=== PATIENT | male | born 1985 | race Caucasian/White ===

== ENCOUNTER 2017-08-23 17:00 | Emergency (ER) | payer SELFPAY ==
[~2017-08-23] VITALS: Ht 177.8 cm; Wt 95.3 kg
[~2017-08-23 17:00] MED LIST: ALBUTEROL2 PUFFS/17 IN; AMOXIL500 MG PO; CLARITIN10 MG PO; HYDROCODONE1 TABLET PO; IBU800 MG PO; LORTAB 5/500 501 TAB PO; MEDROL 4MG. DOSE4 MG PO; NAPROSYN 500MG500 MG PO; NOMEDS; PHENERGAN 25MG.25 M1 PO; SILVADENE CR 4400 GM TP; VIBRAMYCIN HYC100 MG PO
--- OUTSIDE RECORDS SUMMARY | 2017-08-23 17:08 | External Medical Summary Rpt | CCD ---
Author Author , TANVIR Organization T[facility] Address Unknown Phone [email or web address] Purpose Continuity of Care Document - 01-05-2015 through 2016 Results Labs Lab Lab Date Result Refere Interp Status Commen Order Detail nces retati t Range on CHLAMYDIA AND GONORRHEA TESTING (01-05-2015 16:00) Chlamyd POSITIV complet ia 015 E ed trachom 16:00 atis rRNA [Presen ce] in Unspeci fied specime n by Probe & target amplifi cation method Neisser NEGATIV complet ia 015 E ed gonorrh 16:00 oeae rRNA [Presen ce] in Unspeci fied specime n by Probe & target amplifi cation method CHLAMYDIA AND GONORRHEA TESTING (01-05-2015 16:00) COLLECT L. complet OR 015 RENE, ed 16:00 RN ETHNICI WHITE, complet TY 015 NON-HIS ed 16:00 PANIC KIT 2015-01 complet EXPIRAT 015 -30 ed ION 16:00 DATE SYMPTOM YES complet S 015 ed 16:00 REASON VOLUNTE complet FOR 015 ER/MEDI ed REQUEST 16:00 VENTURA PROBLEM SPECIME URINE complet N 015 ed SOURCE 16:00 PREGNAN NO complet T 015 ed 16:00 CHART [id number] complet NUMBER 015 3 ed 16:00 Chlamyd Pending complet ia 015 ed trachom 16:00 atis rRNA [Presen ce] in Unspeci fied specime n by Probe & target amplifi cation method Neisser Pending complet ia 015 ed gonorrh 16:00 oeae rRNA [Presen ce] in Unspeci fied specime n by Probe & target amplifi cation method
--- OUTSIDE RECORDS SUMMARY | 2017-08-23 17:08 | External Medical Summary Rpt ---
Author Author [employer], [employer] [employer] Organization [employer] Address Unknown Phone Unavailable Results CHLAMYDIA AND GONORRHEA TESTING Observa Value Referen Units Interpr Notes Date tion ce etation Range COLLECT L. No No No No Apr 2 OR RENE, informa informa informa informa 2015 RN tion in tion in tion in tion in 4:00 PM source source source source data data data data ETHNICI WHITE, No No No No Apr 2 TY NON-HIS informa informa informa informa 2015 PANIC tion in tion in tion in tion in 4:00 PM source source source source data data data data KIT 2015-01 No No No No Apr 2 EXPIRAT -30 informa informa informa informa 2015 ION tion in tion in tion in tion in 4:00 PM DATE source source source source data data data data SYMPTOM YES No No No No Apr 2 S informa informa informa informa 2015 tion in tion in tion in tion in 4:00 PM source source source source data data data data REASON VOLUNTE No No No No Apr 2 FOR ER/MEDI informa informa informa informa 2015 REQUEST VENTURA tion in tion in tion in tion in 4:00 PM PROBLEM source source source source data data data data SPECIME URINE No No No No Apr 2 N informa informa informa informa 2015 SOURCE tion in tion in tion in tion in 4:00 PM source source source source data data data data PREGNAN NO No No No No Apr 2 T informa informa informa informa 2015 tion in tion in tion in tion in 4:00 PM source source source source data data data data CHART [id number] No No No No Apr 2 NUMBER 3 informa informa informa informa 2015 tion in tion in tion in tion in 4:00 PM source source source source data data data data Chlamyd POSITIV No No No NEGATIV Apr 2 ia E informa informa informa E 2015 trachom tion in tion in tion in RESULT= 4:00 PM atis source source source WITHIN rRNA data data data NORMAL [Presen ce] in LIMITSP Unspeci OSITIVE fied specime RESULT= n by Probe & ABNORMA target LEQUIVO VENTURA amplifi RESULT= cation method INDETER MINATEU NSATISF ACTORY RESULT= INVALID Neisser NEGATIV No No No NEGATIV Apr 2 ia E informa informa informa E 2015 gonorrh tion in tion in tion in RESULT= 4:00 PM oeae source source source WITHIN rRNA data data data NORMAL [Presen ce] in LIMITSP Unspeci OSITIVE fied specime RESULT= n by Probe & ABNORMA target LEQUIVO VENTURA amplifi RESULT= cation method INDETER MINATEU NSATISF ACTORY RESULT= INVALID THE APTIMA COMBO 2 ASSAY IS NOT INTENDE D FOR THE EVALUAT ION OF SUSPECT EDSEXUA L ABUSE OR FOR OTHER MEDICO- LEGAL INDICAT IONS. FOR THOSE PATIENT S FORWHOM A FALSE POSITIV E RESULT MAY HAVE ADVERSE PSYCHO- SOCIAL IMPACT, [facility] NG.\.br \This report contain s patient informa tion that must be protect ed in accorda nce with the Health Insuran ce Portabi lity and Account ability Act. CHLAMYDIA AND GONORRHEA TESTING Observa Value Referen Units Interpr Notes Date tion ce etation Range COLLECT L. No No No No Jan 2 OR ANJU, informa informa informa informa 2014 RN tion in tion in tion in tion in 4:00 PM source source source source data data data data ETHNICI WHITE, No No No No Jan 2 TY NON-HIS informa informa informa informa 2015 PANIC tion in tion in tion in tion in 4:00 PM source source source source data data data data KIT 2015-01 No No No No Jan 05 EXPIRAT -30 informa informa informa informa 2015 ION tion in tion in tion in tion in 4:00 PM DATE source source source source data data data data SYMPTOM YES No No No No Jan 05 S informa informa informa informa 2015 tion in tion in tion in tion in 4:00 PM source source source source data data data data REASON VOLUNTE No No No No Jan 05 FOR ER/MEDI informa informa informa informa 2015 REQUEST VENTURA tion in tion in tion in tion in 4:00 PM PROBLEM source source source source data data data data SPECIME URINE No No No No Apr 2 N informa informa informa informa 2015 SOURCE tion in tion in tion in tion in 4:00 PM source source source source data data data data PREGNAN NO No No No No Apr 2 T informa informa informa informa 2015 tion in tion in tion in tion in 4:00 PM source source source source data data data data CHART [id number] No No No No Apr 2 NUMBER 3 informa informa informa informa 2015 tion in tion in tion in tion in 4:00 PM source source source source data data data data Chlamyd Pending No No No No Apr 2 ia informa informa informa informa 2015 trachom tion in tion in tion in tion in 4:00 PM atis source source source source rRNA data data data data [Presen ce] in Unspeci fied specime n by Probe & target amplifi cation method Neisser Pending No No No \.br\ Apr 2 ia informa informa informa is 2015 gonorrh tion in tion in tion in report 4:00 PM oeae source source source contain rRNA data data data s [Presen patient ce] in Unspeci informa fied tion specime that n by must be Probe & target protect ed in amplifi accorda cation nce method with the Health Insuran ce Portabi lity and Account ability Act.
--- OUTSIDE RECORDS SUMMARY | 2017-08-23 17:08 | External Medical Summary Rpt | CCD ---
Demographics Preferred Language Filipino Marital Status Unknown Worship Affiliation Unknown Race Unknown Ethnic Group Unknown Author Author , TANVIR RAMEY Address Unknown Phone [email or web address] Immunization Name Date Rout CVX Reac Dose Comm Prov Is Faci e tion ent ider Refu lity Give sed n Hep 06-06 42 999 Hist H149 No H149 B, 5- oric adol 98 al Info High rmat Ris ion - Sour ce Unsp ecif ied MMR 07- 3 999 Hist H149 No H149 8- oric 98 al Info rmat ion - Sour ce Unsp ecif ied Hep - 42 999 Hist H149 No H149 B, 8- oric adol 98 al Info High rmat Ris ion - Sour ce Unsp ecif ied
--- OUTSIDE RECORDS SUMMARY | 2017-08-23 17:08 | External Medical Summary Rpt | CCD ---
Author Author [employer] Organization [employer] Address Unknown Phone Unavailable Purpose Continuity of Care Document - through 2016
--- OUTSIDE RECORDS SUMMARY | 2017-08-23 17:08 | External Medical Summary Rpt | CCD ---
Demographics Preferred Language Iranian Marital Status Unknown Mu-Ism Affiliation Unknown Race Unknown Ethnic Group Unknown Author Author , TANVIR RAMEY Address Unknown Phone [email or web address] Immunization Name Date Rout CVX Reac Dose [...]
--- OUTSIDE RECORDS SUMMARY | 2017-08-23 17:08 | External Medical Summary Rpt | CCD ---
Author Author , TANVIR Organization T[facility] Address Unknown Phone [email or web address] Purpose Continuity of Care Document - 01-05-2015 [...] NO complet T 015 ed 16:00 CHART [id number] complet NUMBER 015 3 ed 16:00 Chlamyd Pending complet ia 015 ed trachom 16:00 atis rRNA [Presen ce] in Unspeci fied specime n by Probe & target amplifi cation method Neisser Pending complet ia 015 ed gonorrh 16:00 oeae rRNA [Presen ce] in Unspeci fied specime n by Probe & target amplifi cation method
--- OUTSIDE RECORDS SUMMARY | 2017-08-23 17:08 | External Medical Summary Rpt ---
Author Author [employer] [employer], [employer] [employer] Organization [employer] Address Unknown Phone Unavailable [...] source source data data data data CHART [id number] No No No No Apr 2 NUMBER [...] MAY HAVE ADVERSE PSYCHO- SOCIAL IMPACT, [facility]I NG.\.br \This report contain s [...] source source data data data data CHART [id number] No No No No Apr 2 NUMBER [...]
[2017-08-23] MEDS ORDERED: CLINDAMYCIN HC300 MG PO (18:12)
--- NOTE | 2017-08-23 18:15 | Urgent Treatment Center Report ---
See Addendum History of Present Issue Date/Time Seen by Provider 08/23/17 175 Visit Reason Pt arrived:Walked Presenting Problem:PT HAS ABCESS ON LEFT HAND X'S 3 DAYS Location if Accident: Onset of symptoms date/time:08/20/17 or onset unknown for: Have you (or family members/close friends) recently traveled outside the [place]? N If Yes, where/when: Have you had exposure to infectious disease within the past month? TB? Other? Specify: Patient state that he has had an abcess on his left hand for around 3 days that has continued to get worse State that today it "popped" and started draining and a large amount of puss came out of it so he was worried that it may get infected and was starting to hurt so he came in to get antibiotic and see if we could aspirate some of the puss from the area ALLERGIES Coded Allergies: Sulfa (Sulfonamide Antibiotics) (Intermediate, I-RASH 05/13/16) codeine (Mild, STOMACH PAIN 05/13/16) Home Medications Reported Medications No Home Medications (NO HOME MEDICATIONS) History Medical History General CAD? No Angina: No LA: No Hypertension? Yes Hyperlipidemia? No CHF? No DVT? No PE? No COPD? No Asthma? No Anemia? No GERD? No Gastric ulcers? No GI Bleed? No Hernia? No Thyroid Problems? No Hypothyroidism? No CVA? No Seizures? No Diabetes? No Renal Insuffiency? No UTI? No Stones? No BPH? No GB Disease: No Nephritic Syndrome? No Asplenia? No Hepatitis? No Sickle Cell Disease? No Arthritis? No Migraines? No Cataracts? No Glaucoma? No MRSA? No HIV? No TB? No Anxiety? No Depression? No Cancer? No More? No Immunization HX DT/Tetanus 1-4 YRS Surgical Hx Previous Surgery?Y BROKEN NOSE REPAIR EARTUBES LEFT ARM Social History Smoking Hx Smoker: Current Every Day Smoker Tobacco: Yes Type Cigarettes Packs/day 1 1/2 - 2 Packs Alcohol Alcohol: No Review of Systems All Other Systems Reviewed and Negative Skin other (abcess left hand) Physical Exam Vital Signs Vital Signs Date Time Temp Pulse Resp B/P Pulse O2 O2 Flow FiO2 Ox Delivery Rate 08/23 1809 22 08/23 1737 98.3 107 20 152/71 97 General Appearance normal appearance, WD/WN, no apparent distress Respiratory Status Yes: trachea midline, chest symmetrical, non tender chest. No: respiratory distress. Lung Sounds bilateral: normal breath sounds, lungs clear. Cardiovascular normal exam, regular rate/rhythm, no peripheral edema Neurologic alert, normal exam, oriented x 3 Medical Decision Making LABS/Meds/Orders Pt receiving controlled substance in ED? No Results/Orders Laboratory Tests 08/23/17 1720: Lactic Acid 1.3 08/23/17 172: Sodium 138, Potassium 4.0, Chloride 102, Carbon Dioxide 31, BUN 11, Creatinine 1.0, Estimated Creat Clear 146, Estimated GFR (MDRD) 88, Glucose 68 L, Calcium 9.6, Total Bilirubin 0.5, AST 33, ALT 67, Alkaline Phosphatase 83, Total Protein 8.8 H, Albumin 4.0, Globulin 4.8 H, Albumin/Globulin Ratio 0.8 L, WBC 10.9 H , RBC 5.48, Hgb 14.9, Hct 43.6, MCV 79.6 L, RDW 14.4, Plt Count 348, MPV 6.8 L , Gran % 72.9, Gran # 7.9, Lymphocytes % 18.1, Monocytes % 6.3, Eosinophils % 2.3, Basophils % 0.4, Lymphocytes # 2.0, Monocytes # 0.7, Eosinophils # 0.3, Basophils # 0.0, PUBS MCHC 34.2, MCH 27.2 Current Medication Orders Sig/Mckayla Start time Last Medication Dose Route Stop Time Status Admin Clindamycin HCl 0 .STK-MED ONE 08/23 1819 DC PO Clindamycin HCl 300 MG ONCE ONE 08/23 1815 DC 08/23 PO 08/23 1816 1825 Ketorolac 30 MG ONCE ONE 08/23 181 DC 08/23 Tromethamine IV 08/23 1816 180 Sodium Chloride 10 ML PRN PRN 08/23 1815 AC IV 08/24 180 Ketorolac 0 .STK-MED ONE 08/23 1749 DC Tromethamine .ROUTE Orders Procedure Date/time Status CULTURE, WOUND 08/23 1817 Active IV SALINE LOCK 08/23 1803 Active CULTURE, BLOOD 08/23 180 Active LACTIC ACID 08/23 180 Complete CBC WITH AUTO DIFF 08/23 1803 Complete CHEM 12 PROFILE 08/23 [address] [facility] Progress Notes 1 Date 08/23/17 Time 1740 Comment Patient had previously opened abcess area prior to arrival, area open and draining small amount of puss noted, patient states that large amount of puss expelled prior to arrival attempted to aspirate, small amount of puss aspirated collected and sent to lab for culture, area marked for paitent to watch [facility] Progress Notes 2 Comment Patient states that he is feeling better first dose of antibiotic given patient advised to monitor area and if worsening of symptoms go straight to ER Procedures Incision and Drainage Incision and Drainage Risks/benefits discussed with pt/guardian? Yes Problem type Abcess Location left thumb/wrist Size cm 3.0 I & D Procedure betadine prep, Pus small amount, Cultured, Sterile Dressing Applied. Departure Departure Time of Disposition 180 Disposition DC Home or Self Care(routine) Clinical Impression Primary Impression: Skin abscess Qualifiers: Site of cutaneous abscess: extremity Site of cutaneous abscess of extremity: upper extremity Laterality: left Qualified Code: L02.414 - Cutaneous abscess of left upper limb Condition STABLE Referrals Ani MACEDO,Ifeanyi WOLFE MD,JAVIER Jewell Patient Instructions Boil, DI for Boils, DI for Cellulitis -- Adult Additional Instructions Follow up with Dr Wolfe/[facility] as advised in [facility] today Follow up with family doctor Return if needed Take medications as prescribed *Start antibiotic(s) immediately and be sure to take as ordered for the FULL length of time although you may be feeling better or start to see improvement in the next 24-48 hours *Monitor closely. Outlined redness so that you can monitor easier. Follow up immediately for new or worsening symptoms including but not limited to redness, swelling, streaking from site fever or chills. *Warm compress 15 minutes 3-4 times day *Never squeeze or pop these on your own. Seek immediate medical attention next time this occurs *Monitor Temp. Tylenol every 4 hours as needed and ibuprofen every 6 hours as needed (as long as your primary care doctor has told you that it is ok to take both. For fever, aches, pain. ER if no less that 101 despite Tylenol and ibuprofen Discharge Counseling Counseled pt/family regarding diagnosis, medications/RX, home care, follow up needs Prescriptions Current Visit Scripts Clindamycin Hcl (Clindamycin 300MG) 300 MG PO TID #30 CAP at 1917
[2017-08-23 18:45] LABS: HEMOGLOBIN 14.9 g/dL (14.1-18.0); LYMPH % 18.1 % (10-50)
[2017-08-23 19:25] VITALS: BP 152/71
== END 2017-08-23 19:25 | disposition home or self-care (01) ==
LOC: UTC 17:00
PROVIDERS: Nurse Practitioner
DX: L02.414 Cutaneous abscess of left upper limb (principal); F17.210 Nicotine dependence, cigarettes, uncomplicated; I10 Essential (primary) hypertension; Z88.2 Allergy status to sulfonamides; Z88.6 Allergy status to analgesic agent